=== PATIENT | female | born 1985 | race Caucasian/White ===

== ENCOUNTER 2016-11-01 14:58 | Emergency (ER) | payer OTHER ==
[2016-11-01 15:10] VITALS: BP 140/99
--- NOTE | 2016-11-01 15:16 | ED Physician Documentation ---
PD HPI URI - Stated complaint Stated Complaint: COUGH - Chief complaint Chief Complaint: Heent - History obtained from History obtained from: Patient - History of Present Illness Timing - onset: Other (She has been sick for about a week with increasing illness with severe cough, sometimes productive with shortness of breath and wheezing. Similar to prior episode of walking pneumonia. No fevers. No recent travel. 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.) Review of Systems Constitutional: denies: Fever, Chills Throat: denies: Dental pain / toothache, Sore throat Cardiac: denies: Chest pain / pressure, Palpitations Respiratory: reports: Dyspnea, Cough GI: denies: Abdominal Pain : denies: Now [facility] PAST MEDICAL HISTORY - Present Medications Home Medications: Ambulatory Orders Medication Instructions Recorded Confirmed Albuterol Sulfate [Proventil Hfa 1 - 2 puffs IH Q4H PRN #1 11/01/16 Inhaler] hfa.aer.ad Azithromycin [Zithromax] 250 mg PO DAILY #6 tablet 11/01/16 Mometasone Furoate [Nasonex] 1 spray NS BID #1 spray.pump 11/01/16 guaiFENesin/CODEINE [Robitussin AC] 5 - 10 ml PO Q6H PRN #120 ml 11/01/16 predniSONE [Deltasone] 60 mg PO DAILY 5 Days 11/01/16 - Allergies Allergies/Adverse Reactions: Allergies Allergy/AdvReac Type Severity Reaction Status Date / Time No Known Drug Allergies Allergy Verified 11/01/16 15:19 PD ED PE NORMAL - Vitals Vital signs reviewed: Yes - General General: Alert and oriented X 3, Other (Coughing a lot) - HEENT HEENT: PERRL, EOMI, Ears normal, Pharynx benign - Neck Neck: Supple, no meningeal sign, No bony TTP - Cardiac Cardiac: RRR, No murmur - Respiratory Respiratory: No respiratory distress, Other (Diminished air motion throughout with some inspiratory and expiratory wheezes and mild rhonchi at the right base) - Abdomen Abdomen: Soft, Non tender - Back Back: No CVA TTP, No spinal TTP - Derm Derm: No rash - Neuro Neuro: Alert and oriented X 3, Normal speech - Psych Psych: Normal mood, Normal affect Results - Vitals Vitals: Vital Signs - 24 hr 11/01/16 15:07 Temperature 36.5 C Heart Rate 80 Respiratory 20 Rate Blood Pressure 140/99 H O2 Saturation 96 Oxygen O2 Source Room air PD MEDICAL DECISION MAKING - ED course ED course: 31-year-old woman with severe bronchitis, and some focal breath sounds which could be consistent with pneumonia, she is well-appearing though and no fever. She is treated with antibiotics, steroids, inhalers. Departure - Departure Disposition: 01 Home, Self Care Clinical Impression: Bronchitis Pneumonia Qualifiers: Pneumonia type: due to unspecified organism Laterality: unspecified laterality Lung location: unspecified part of lung Qualified Code(s): J18.9 - Pneumonia, unspecified organism Condition: Good Record reviewed to determine appropriate education?: Yes Instructions: Bronchitis Acute Dc Prescriptions: predniSONE [Deltasone] 60 mg PO DAILY 5 Days Mometasone Furoate [Nasonex] 1 spray NS BID #1 spray.pump Albuterol Sulfate [Proventil Hfa Inhaler] 1 - 2 puffs IH Q4H PRN #1 hfa.aer.ad PRN Reason: Cough guaiFENesin/CODEINE [Robitussin AC] 5 - 10 ml PO Q6H PRN #120 ml PRN Reason: Cough Azithromycin [Zithromax] 250 mg PO DAILY #6 tablet Comments: Call your doctor to arrange a follow-up appointment, make the next available appointment. In the interim, return anytime if worse or if new symptoms develop. Your blood pressure was elevated today on check into the emergency department. This does not mean that you have hypertension, it is a common phenomenon to come to the emergency department and have elevated blood pressure. I recommend that she see your primary care physician within the week to have it rechecked when you are feeling better. Forms: Activity restrictions
== END 2016-11-01 15:30 | disposition home or self-care (01) ==
LOC: ED 14:58
DX: J18.9 Pneumonia, unspecified organism (principal); R03.0 Elevated blood-pressure reading, without diagnosis of hypertension
CPT/HCPCS: 99283

== ENCOUNTER 2016-12-26 16:18 | Emergency (ER) | payer OTHER ==
[2016-12-26 16:28] VITALS: BP 117/79
[2016-12-26] MEDS ORDERED: PROPARACAINE 0.5% OPHTH DROPS 15 ML ONE (16:45)
--- NOTE | 2016-12-26 17:06 | ED Physician Documentation ---
PD HPI OPHTHO - Stated complaint Stated Complaint: R EYE SWOLLEN - Chief complaint Chief Complaint: Heent - History obtained from History obtained from: Patient, Friend - History of Present Illness Timing - onset: Today Timing - duration: Days (1) Timing - details: Gradual onset Pain level max: 2 Pain level now: 2 Location: Right Quality / character: Itching, Burning, Aching Associated symptoms: Redness, Swelling, Tearing. No: FB sensation, Photophobia , Decreased vision, Loss of vision Contributing factors: Recent URI. No: Chemical exposure, acid, Chemical exposure, base, Blunt trauma, Wears glasses, Wears contacts Similar symptoms before: Has not had sx before Recently seen: Not recently seen Review of Systems Constitutional: denies: Fever Eyes: denies: Photophobia Nose: reports: Rhinorrhea / runny nose, Congestion Respiratory: denies: Cough GI: denies: Abdominal Pain, Nausea, Vomiting : denies: Now [facility] PAST MEDICAL HISTORY - Past Medical History Past Medical History: Yes Psych: Post traumatic stress disorder - Past Surgical History Past Surgical History: Yes Derm: Skin grafts - Present Medications Home Medications: Ambulatory Orders Medication Instructions Recorded Confirmed Albuterol Sulfate [Proventil Hfa 1 - 2 puffs IH Q4H PRN #1 11/01/16 Inhaler] hfa.aer.ad Azithromycin [Zithromax] 250 mg PO DAILY #6 tablet 11/01/16 Mometasone Furoate [Nasonex] 1 spray NS BID #1 spray.pump 11/01/16 guaiFENesin/CODEINE [Robitussin AC] 5 - 10 ml PO Q6H PRN #120 ml 11/01/16 predniSONE [Deltasone] 60 mg PO DAILY 5 Days tablet 11/01/16 Ketotifen Fumarate [Zaditor] 1 drops EACHEYE Q8H PRN #1 drops 12/26/16 Polymyxin B/Trimeth Ophth Drop 1 drops EACHEYE Q3H 7 Days #1 drops 12/26/16 [Polytrim Ophth Drops] - Allergies Allergies/Adverse Reactions: Allergies Allergy/AdvReac Type Severity Reaction Status Date / Time No Known Drug Allergies Allergy Verified 12/26/16 16:28 - Social History Does the pt smoke?: No Smoking Status: Never smoker Does the pt drink ETOH?: No Does the pt have substance abuse?: No - Immunizations Immunizations are current?: Yes - POLST Patient has POLST: No PD ED PE NORMAL - Vitals Vital signs reviewed: Yes - General General: Alert and oriented X 3, No acute distress, Well developed/nourished - HEENT HEENT: PERRL, EOMI, Moist mucous membranes, Other (Right upper and lower eyelids are mildly swollen and erythematous. Mild irritation of the conjunctiva. Clear drainage. No fluorescein uptake. Left eye is normal.) - Neck Neck: Supple, no meningeal sign - Derm Derm: Warm and dry - Neuro Neuro: Alert and oriented X 3 Results - Vitals Vitals: Vital Signs - 24 hr 12/26/16 16:26 Temperature 36.2 C L Heart Rate 60 Respiratory 18 Rate Blood Pressure 117/79 O2 Saturation 98 Oxygen O2 Source Room air PD MEDICAL DECISION MAKING - ED course Complexity details: considered differential, d/w patient ED course: Patient is a 31-year-old female with what appears to be blepharitis of the right eye, possibly viral, possibly allergic? Will start on Zaditor eyedrops. Will also cover for possible bacterial conjunctivitis with Polytrim ophthalmic. Does not wear contacts. No trauma. No fluorescein uptake. No foreign bodies. Patient counseled regarding signs and symptoms for which I believe and urgent re-evaluation would be necessary. Patient with good understanding of and agreement to plan and is comfortable going home at this time This document was made in part using voice recognition software. While efforts are made to proofread this document, sound alike and grammatical errors may occur. Departure - Departure Disposition: 01 Home, Self Care Clinical Impression: Blepharitis of eyelid of right eye Qualifiers: Blepharitis type: unspecified type Eyelid: both upper and lower Qualified Code( s): H01.001 - Unspecified blepharitis right upper eyelid Conjunctivitis Qualifiers: Conjunctivitis type: acute Acute conjunctivitis type: unspecified Laterality: right Qualified Code(s): H10.31 - Unspecified acute conjunctivitis, right eye Condition: Good Instructions: ED Inflammation Eyelid, ED Conjunctivitis Nonspecific Follow-Up: your,doctor in 3 days for recheck [Other] Prescriptions: Ketotifen Fumarate [Zaditor] 1 drops EACHEYE Q8H PRN #1 drops PRN Reason: itching Polymyxin B/Trimeth Ophth Drop [Polytrim Ophth Drops] 1 drops EACHEYE Q3H 7 Days #1 drops Comments: Return if you worsen. This should improve over the next few days. Discharge Date/Time: 12/26/16 17:26
== END 2016-12-26 17:26 | disposition home or self-care (01) ==
LOC: ED 16:18
DX: H01.001 Unspecified blepharitis right upper eyelid (principal); H10.31 Unspecified acute conjunctivitis, right eye
CPT/HCPCS: 99283; J3490

== ENCOUNTER 2020-01-16 12:49 | Emergency (ER) | payer OTHER ==
[2020-01-16 13:07] VITALS: BP 133/70
[2020-01-16] MEDS ORDERED: ONDANSETRON ODT 4 MG TABLET TL STA (15:17)
--- NOTE | 2020-01-16 15:17 | ED Physician Documentation ---
History of Present Illness - Stated complaint Stated Complaint: DIARRHEA/FATIGUE SORE THROAT - Chief complaint Chief Complaint: Abd Pain - History obtained from History obtained from: Patient - History of Present Illness Timing: How many days ago (2) Pain level max: 3 Pain level now: 2 - Additonal information Additional information: 34 year old female with a sore throat, runny nose and congestion today. States feels nauseated as well. diarrhea x 2. No fevers. No cough. Had the flu vaccination 4 days ago. She is scheduled to go home to [place] soon to take care of her father. 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 Review of Systems Constitutional: denies: Fever, Chills Nose: reports: Rhinorrhea / runny nose, Congestion Throat: reports: Sore throat Cardiac: denies: Chest pain / pressure Respiratory: denies: Cough GI: reports: Nausea, Diarrhea. denies: Vomiting : denies: Dysuria, Frequency, Hesitancy, Now [facility] Skin: denies: Rash Musculoskeletal: denies: Neck pain, Back pain Neurologic: denies: Headache PD PAST MEDICAL HISTORY - Past Medical History Cardiovascular: None Respiratory: Other Neuro: None Endocrine/Autoimmune: None GI: None HEALTH RESEARCHER: None : None HEENT: None Psych: Post traumatic stress disorder Musculoskeletal: None Derm: None - Past Surgical History Past Surgical History: Yes Derm: Skin grafts - Present Medications Home Medications: Ambulatory Orders Medication Instructions Recorded Confirmed Fexofenadine/Pseudoephedrine 1 tab PO DAILY 01/16/20 01/16/20 [Mi-D 24 Hour Tablet] Ondansetron Odt [Zofran] 4 mg TL Q6H PRN #10 tablet 01/16/20 - Allergies Allergies/Adverse Reactions: Allergies Allergy/AdvReac Type Severity Reaction Status Date / Time No Known Drug Allergies Allergy Verified 01/16/20 13:07 - Social History Does the pt smoke?: No Smoking Status: Never smoker Does the pt drink ETOH?: No Does the pt have substance abuse?: No - Immunizations Immunizations are current?: Yes - POLST Patient has POLST: No PD ED PE NORMAL - Vitals Vital signs reviewed: Yes - General General: Alert and oriented X 3, No acute distress, Well developed/nourished - HEENT HEENT: PERRL, Ears normal, Moist mucous membranes, Other (Mild posterior oroph aryngeal erythema without tonsillar exudates. Uvula midline. Normal phonation. No trismus.) - Neck Neck: Supple, no meningeal sign, No adenopathy - Cardiac Cardiac: RRR, Strong equal pulses - Respiratory Respiratory: No respiratory distress, Clear bilaterally - Abdomen Abdomen: Soft, Non tender, Non distended - Back Back: No CVA TTP, No spinal TTP - Derm Derm: Warm and dry, No rash - Neuro Neuro: Alert and oriented X 3 - Psych Psych: Normal mood, Normal affect Results - Vitals Vitals: Vital Signs - 24 hr 01/16/20 13:03 Temperature 36.5 C Heart Rate 77 Respiratory 16 Rate Blood Pressure 133/70 H O2 Saturation 97 Oxygen O2 Source Room air - Labs Labs: Laboratory Tests 01/16/20 15:18 Nasal Adenovirus (PCR) NOT DETECTED Nasal B. parapertussis DNA (PCR) NOT DETECTED Nasal Coronavir 229E PCR NOT DETECTED Nasal Coronavir HKU1 PCR NOT DETECTED Nasal Coronavir NL63 PCR NOT DETECTED Nasal Coronavir OC43 PCR NOT DETECTED Nasal Enterovir/Rhinovir PCR DETECTED A Nasal Influenza B PCR NOT DETECTED Nasal Influenza A PCR NOT DETECTED Nasal Parainfluen 1 PCR NOT DETECTED Nasal Parainfluen 2 PCR NOT DETECTED Nasal Parainfluen 3 PCR NOT DETECTED Nasal Parainfluen 4 PCR NOT DETECTED Nasal RSV (PCR) NOT DETECTED Nasal B.pertussis DNA PCR NOT DETECTED Nasal C.pneumoniae (PCR) NOT DETECTED Smith Human Metapneumo PCR NOT DETECTED Nasal M.pneumoniae (PCR) NOT DETECTED Nasal SARS-CoV-2 (PCR) NOT DETECTED PD MEDICAL DECISION MAKING - ED course Complexity details: reviewed results, re-evaluated patient, considered differential, d/w patient ED course: Patient appears to have a viral syndrome. She tested positive for rhinovirus/enterovirus. We will continue supportive care and have her follow-up with her doctor. Covid is negative. Patient counseled regarding signs and symptoms for which I believe and urgent re-evaluation would be necessary. Patient with good understanding of and agreement to plan and is comfortable going home at this time This document was made in part using voice recognition software. While efforts are made to proofread this document, sound alike and grammatical errors may occur. Departure - Departure Disposition: 01 Home, Self Care Clinical Impression: Viral syndrome, Rhinovirus infection Condition: Good Instructions: ED Viral Syndrome Follow-Up: your,doctor in 1 week [Other] Prescriptions: Ondansetron Odt [Zofran] 4 mg TL Q6H PRN #10 tablet PRN Reason: Nausea / Vomiting Comments: Drink plenty of fluids and rest. Return if you worsen. Your Covid test is negative. You have tested positive for rhinovirus, this is a common cold virus.
[2020-01-16 16:20] LABS: C. PNEUMONIAE- RESP PCR PANEL NOT DETECTED
== END 2020-01-16 16:32 | disposition home or self-care (01) ==
LOC: ED 12:49
DX: B34.8 Other viral infections of unspecified site (principal); Z20.828 Contact with and (suspected) exposure to other viral communicable diseases
CPT/HCPCS: 0202U; 99283; 99284; Q0162

== ENCOUNTER 2020-08-19 20:11 | Emergency (ER) | payer OTHER ==
--- NOTE | 2020-08-19 20:55 | XRAY Report ---
PROCEDURE: Chest 2 View X-Ray INDICATIONS: cough TECHNIQUE: 2 view(s) of the chest. COMPARISON: Chest x-ray 2 view, 02/02/2018. FINDINGS: Surgical changes and devices: None. Lungs and pleura: No pleural effusions or pneumothorax. Lungs are clear. Mediastinum: Mediastinal contours are normal. Heart size is normal. Bones and chest wall: No suspicious bony abnormalities. Soft tissues appear unremarkable. IMPRESSION: No acute cardiopulmonary disease. Reviewed by: Chidi Caldwell MD on 08/19/2020 8:54 PM PDT Approved by: Chidi Caldwell MD on 08/19/2020 8:54 PM PDT Station ID: [id number]
[2020-08-19] MEDS ORDERED: guaiFENesin/CODEINE 5 ML UDC PO STA (21:05)
[2020-08-19] MEDS ORDERED: ALBUTEROL NEB 2.5 MG/3 ML INH STA (21:05)
[2020-08-19] MEDS ORDERED: BENZONATATE 100 MG CAPSULE PO STA (21:05)
--- NOTE | 2020-08-19 21:08 | ED Physician Documentation ---
PD HPI URI - Stated complaint Stated Complaint: COUGH/CONGESTED - Chief complaint Chief Complaint: Resp - History obtained from History obtained from: Patient - Additional information Additional information: Sick for 2 days initially with sore throat and sinus symptoms, now with more productive cough. No fevers or shortness of breath. It hurts a lot to cough. Review of Systems Constitutional: denies: Fever, Chills, Myalgias Nose: reports: Rhinorrhea / runny nose Throat: reports: Sore throat Respiratory: reports: Cough. denies: Dyspnea PD PAST MEDICAL HISTORY - Past Medical History Past Medical History: Yes Cardiovascular: None Respiratory: Other Neuro: None Endocrine/Autoimmune: None GI: None ROLL CHANGER: None : None HEENT: None Psych: Post traumatic stress disorder Musculoskeletal: None Derm: None Other Past Medical History: bronchitis - Past Surgical History Past Surgical History: Yes Derm: Skin grafts - Present Medications Home Medications: Ambulatory Orders Medication Instructions Recorded Confirmed Fexofenadine/Pseudoephedrine 1 tab PO DAILY 01/16/20 08/19/20 [Mi-D 24 Hour Tablet] Albuterol Sulf [Ventolin Hfa 1 - 2 puffs INH Q4HR PRN #1 inhaler 08/19/20 Inhaler] Benzonatate [Tessalon] 200 mg PO QID PRN #20 cap 08/19/20 Fluticasone [Flonase] 1 spr SHAN DAILY 08/19/20 08/19/20 guaiFENesin/CODEINE [Robitussin AC] 5 - 10 ml PO Q6H PRN #120 ml 08/19/20 - Allergies Allergies/Adverse Reactions: Allergies Allergy/AdvReac Type Severity Reaction Status Date / Time No Known Drug Allergies Allergy Verified 08/19/20 20:20 - Social History Does the pt smoke?: No Smoking Status: Current every day smoker (vapes) Does the pt drink ETOH?: No Does the pt have substance abuse?: No - Immunizations Immunizations are current?: Yes - POLST Patient has POLST: No PD ED PE NORMAL - Vitals Vital signs reviewed: Yes - General General: Alert and oriented X 3, No acute distress - HEENT HEENT: Ears normal, Pharynx benign - Neck Neck: Supple, no meningeal sign, No bony TTP - Cardiac Cardiac: RRR, No murmur - Respiratory Respiratory: No respiratory distress, Clear bilaterally - Abdomen Abdomen: Non tender - Neuro Neuro: Alert and oriented X 3, Normal speech Results - Vitals Vitals: Vital Signs - 24 hr 08/19/20 08/19/20 08/19/20 20:17 21:24 21:50 Temperature 36.7 C 36.7 C Heart Rate 66 68 65 Respiratory 18 18 18 Rate Blood Pressure 128/86 H 121/63 O2 Saturation 98 99 Oxygen O2 Source Room air Departure - Departure Disposition: Home, Self Care Clinical Impression: Viral syndrome Upper respiratory tract infection Qualifiers: URI type: unspecified viral URI Qualified Code(s): J06.9 - Acute upper respiratory infection, unspecified Condition: Good Record reviewed to determine appropriate education?: Yes Instructions: ED URI Viral Prescriptions: Albuterol Sulf [Ventolin Hfa Inhaler] 1 - 2 puffs INH Q4HR PRN #1 inhaler PRN Reason: Shortness Of Air/Wheezing guaiFENesin/CODEINE [Robitussin AC] 5 - 10 ml PO Q6H PRN #120 ml PRN Reason: Cough Benzonatate [Tessalon] 200 mg PO QID PRN #20 cap PRN Reason: Cough Comments: Return if you develop a fever, do not improve over the next week or so, or otherwise worsen. [place] Forms: Activity restrictions, Watchful Waiting
[2020-08-19 21:51] VITALS: BP 121/63
== END 2020-08-19 21:58 | disposition home or self-care (01) ==
LOC: ED 20:11
DX: J06.9 Acute upper respiratory infection, unspecified (principal); F17.200 Nicotine dependence, unspecified, uncomplicated
CPT/HCPCS: 71046; 94640; 99283; A9270

== ENCOUNTER 2021-04-12 18:21 | Emergency (ER) | payer OTHER ==
[2021-04-12 18:33] VITALS: BP 136/85
[2021-04-12] MEDS ORDERED: HYDROcod/ACETAM 5/325 MG TABLET PO STA (19:19)
--- NOTE | 2021-04-12 19:22 | ED Physician Documentation ---
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 A few months ago she came down off the chair and "tweaked her knee. On and off its been bothering her ever since but today after "dragging" a softball field always to the left she has much more severe knee pain. There was no specific injury otherwise. 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 : None HEENT: None Psych: Post traumatic stress disorder Musculoskeletal: None Derm: None - Past Surgical History Past Surgical History: Yes Derm: Skin grafts - Present Medications Home Medications: Ambulatory Orders Medication Instructions Recorded Confirmed Fexofenadine/Pseudoephedrine 1 tab PO DAILY 01/16/20 04/12/21 [Mi-D 24 Hour Tablet] HYDROcod/ACETAM 5/325 [[place] 5/325] 1 - 2 tab PO Q6H PRN #15 tablet 04/12/21 - Allergies Allergies/Adverse Reactions: Allergies Allergy/AdvReac Type Severity Reaction Status Date / Time No Known Drug Allergies Allergy Verified 04/12/21 18:32 - Social History Does the pt smoke?: No Smoking Status: Current every day smoker (vapes) Does the pt drink ETOH?: No Does the pt have substance abuse?: No - Immunizations Immunizations are current?: Yes - POLST Patient has POLST: No PD ED PE NORMAL - Vitals Vital signs reviewed: Yes - General General: Alert and oriented X 3, No acute distress - Extremities Extremities: Other (Left knee has no effusion, she is tender over the lateral joint line and has positive grind testing but also significant crepitance with flexion and extension behind the patella.) - Neuro Neuro: Alert and oriented X 3, Normal speech Results - Vitals Vitals: Vital Signs - 24 hr 04/12/21 18:27 Temperature 36.7 C Heart Rate 92 Respiratory 16 Rate Blood Pressure 136/85 H O2 Saturation 98 Oxygen O2 Source Room air - Rads (name of study) Left knee x-ray is unremarkable Radiology: EMP read contemporaneously PD MEDICAL DECISION MAKING - ED course ED course: Left knee pain, subacute but worsening especially tonight. She has some element of patellofemoral syndrome but I also worry about a lateral meniscus injury based on my exam. She is placed in a knee immobilizer and advised on the necessity of [place] Departure - Departure Disposition: Home, Self Care Clinical Impression: Patellofemoral arthritis of right knee Condition: Good Record reviewed to determine appropriate education?: Yes Instructions: ED Meniscal Injury Knee Poss Prescriptions: HYDROcod/ACETAM 5/325 [[place] 5/325] 1 - 2 tab PO Q6H PRN #15 tablet PRN Reason: Pain Comments: As discussed, your exam is consistent with probably a combination of patellofemoral syndrome as well as a muscle worried about potentially a meniscus injury on the left side of the lateral [place] meniscus. You should follow-up with base orthopedics and wear the splint as needed for comfort, you can take it off for sleeping and showering etc. Return for new or worsening symptoms. I sent your prescription electronically to [facility] in [place]. I am prescribing a short course of narcotic pain medication for you. These are potentially dangerous and addictive medications that should be used carefully. These medications may constipate you. Take an [id number] stool softener (docusate) twice daily with plenty of water while taking these medications. If you go 24 hours without a bowel movement, take [id number] miralax, per package instructions. Do not drink or drive while taking these medications. If you received narcotic or sedating medications while in the emergency department, do not drive for 24 hours. Store this medication in a safe, secure place and out of reach of children. It is a violation of federal law to give or sell this medication to another person or to use in a manner other than prescribed. The ED will not refill narcotic prescriptions, including prescriptions lost or stolen. To dispose of unwanted medications: 1. [facility] at [address] in [place] has a medication drop box. They accept prescription medications (in pill form) Thursday through Thursday 9:00 a.m. to 5:00 p.m. 2. The [facility] accepts prescription medications (in pill form only) for disposal year round. Call for more information. 3. Contact the [facility] for the next [facility] sponsored prescription drug collection event. , [phone], or [phone]; Note that many narcotic pain relievers also contain Tylenol/acetaminophen. Please ensure that your total dose of acetaminophen from all sources does not exceed 3 g (3000 mg) per day. Forms: Activity restrictions Discharge Date/Time: 04/12/21 19:30
--- NOTE | 2021-04-12 19:47 | XRAY Report ---
PROCEDURE: Knee 4 View LT INDICATIONS: l knee inj TECHNIQUE: 4 views of the left knee were acquired. COMPARISON: None. FINDINGS: Bones: No fractures or dislocations. No suspicious bony lesions. Soft tissues: There is a minimal joint effusion. No suspicious soft tissue calcifications. IMPRESSION: 1. No fracture or dislocation. Reviewed by: Chris Jerome MD on 04/12/2021 7:46 PM PST Approved by: Chris Jerome MD on 04/12/2021 7:46 PM PST Station ID: [id number]
== END 2021-04-12 19:30 | disposition home or self-care (01) ==
LOC: ED 18:21
DX: M17.12 Unilateral primary osteoarthritis, left knee (principal); F17.290 Nicotine dependence, other tobacco product, uncomplicated
CPT/HCPCS: 73564; 99283; A9270